=== PATIENT | female | born 1955 | race African-American/Black ===

== ENCOUNTER 2016-11-13 22:10 | Emergency (ER) | payer OTHER ==
[~2016-11-13] VITALS: Ht 167.6 cm; Wt 77.1 kg
[2016-11-13 22:16] VITALS: BP 106/59
--- NOTE | 2016-11-13 22:24 | ED UPPER/LOWER EXTREMITY COMPL ---
History of Present Illness General Chief Complaint: Fall Stated Complaint: "BIBA PER EMS SLIP AND FALL" Source: patient Exam Limitations: no limitations Vital Signs & Intake/Output Vital Signs & Intake/Output Vital Signs Date Time Temp Pulse Resp B/P Pulse O2 O2 Flow FiO2 Ox Delivery Rate 11/137 97 Room Air 11/14 2215 96.6 83 18 106/59 96 Room Air ED Intake and Output 11/14 0000 11/13 1200 Intake Total Output Total Balance Patient 170 lb Weight Allergies Coded Allergies: MDX - Aspirin (UNKNOWN 07/25/11) MDX - Chocolate (Chocolate) (UNKNOWN 07/25/11) MDX - Penicillin (Penicillin) (RASH 07/25/11) MDX - Penicillin V (From Penicillin V Potassium) (RASH 07/25/11) MDX - Strawberries (Strawberries) (UNKNOWN 07/25/11) Triage Note: PT BIBA FROM [facility] [employer] C/O FALL. PER EMS PT WAS SHOPPING AND FELL AND LANDED ON LEFT SIDE OF BODY, HIP AND L KNEE. PT DENIES LOC, NO BLOOD THINNERS. PT ON ARRIVAL HAD SPLINT ON LEFT LEG, PER EMS NO LEG DEFORMITY OR DISFIGUREMENT IN [facility]. PT ON STRETCHER IN [facility] AT BEDSIDE FOR EVAL, FAMILY AT BEDSIDE WELL Triage Nurses Notes Reviewed? yes Onset: Abrupt Duration: minute(s):, constant, continues in ED Timing: single episode today Severity: moderate, severe Pain/Injury Location: Right: Hip, Knee. Method of Injury: fall No Modifying Factors: none HPI: 61-year-old female comes into emergency room for further evaluation of left hip pain and left knee pain and left lower leg pain. Patient reports that she twisted her leg and fell on her left side at the store. Sharp pain. Denies any head trauma. Denies any injury anywhere else. Nothing seems to make the symptoms better. Patient came in by ambulance. Past History Travel History Traveled to [place] past 21 day No Medical History Any Pertinent Medical History? none Surgical History Surgical History: non-contributory Psychosocial History What is your primary language [place] Family History Hx Contributory? No Review of Systems Review of Systems Constitutional: Reports: no symptoms. EENTM: Reports: no symptoms. Respiratory: Reports: no symptoms. Cardiovascular: Reports: no symptoms. Gastrointestinal/Abdominal: Reports: no symptoms. Genitourinary: Reports: no symptoms. Musculoskeletal: Reports: see HPI. Skin: Reports: no symptoms. Neurological/Psychological: Reports: no symptoms. Hematologic/Endocrine: Reports: no symptoms. Immunological: Reports: no symptoms. All Other Systems: Reviewed and Negative Physical Exam Physical Exam General Appearance: well developed/nourished, mild distress Head: atraumatic Eyes: Bilateral: normal appearance. Ears, Nose, Throat: normal ENT inspection, hearing grossly normal Neck: normal inspection Cardiovascular/Respiratory: no respiratory distress Back: normal inspection Hip Left: normal range of motion, normal inspection Knee Left: normal inspection, soft tissue tenderness, limited range of motion Foot Left: normal inspection, normal range of motion Skin: intact, normal color, warm/dry Lymphatic: no anterior cervical otis Progress Differential Diagnosis: contusion, dislocation, fracture, gout, septic arthritis , sprain, tendon injury Plan of Care: Orders Procedure Date/time Status Durable Medical Equipment 11/13 2340 Active Diagnostic Imaging: Viewed by Me: Radiology Read. Discussed w/RAD: Radiology Read. Comments: IMPRESSION: No acute abnormality. Degenerative joint disease of the knee. IMPRESSION: Normal left tibia and fibula. IMPRESSION: Normal left hip. DICTATED BY: AROSE Departure Departure Disposition: HOME OR SELF CARE Condition: Stable Clinical Impression Primary Impression: Left knee sprain Referrals: HUSSEIN ESTRADA,ZEFERINO MARIN MD,CHARITY Vanegas (PCP/Family) Additional Instructions: Ice. Rest. Motrin for pain. Elevation. Follow-up with orthopedic doctor provided if not better in 3-5 days. If symptoms do not improve you'll require further evaluation with possible repeat x-rays as well as evaluation by rx specialist. Sprains can last anywhere from days to weeks. No high impact running or jumping if you have an ankle sprain or any type of lower extremity sprain. Return to normal activity only after symptoms have resolved. Departure Forms: Customer Survey General Discharge Information Procedures Splinting Location: LEFT KNEE Manual Alignment Performed: No Pre-Made Type: knee imobilizer Splint Applied By: splint applied by me Pre-Proc Neuro Vasc Exam: normal Post-Proc Neuro Vasc Exam: normal
--- NOTE | 2016-11-13 23:14 | RADIOLOGY REPORT ---
EXAMINATION: XR HIP, LEFT CLINICAL INFORMATION: Trauma. Fall. Pain. COMPARISON: None TECHNIQUE: Two views of the left hip. FINDINGS: Bones and soft tissues are normal. No fracture. Alignment is anatomic. Hip joint space is maintained. IMPRESSION: Normal left hip.
--- NOTE | 2016-11-13 23:20 | RADIOLOGY REPORT ---
EXAMINATION: XR KNEE, LEFT CLINICAL INFORMATION: Trauma. Fall. Pain. COMPARISON: None TECHNIQUE: Four views of the left knee. FINDINGS: No fracture. No dislocation. There is joint space narrowing of the medial femoral tibial joint with large marginal spur of the femur and smaller spur of the tibia. Minimal spur of the patella inferiorly at the patellofemoral joint. No bone erosion. No joint effusion. No soft tissue calcification. IMPRESSION: No acute abnormality. Degenerative joint disease of the knee.
--- NOTE | 2016-11-13 23:22 | RADIOLOGY REPORT ---
EXAMINATION: XR TIBIA AND FIBULA, LEFT CLINICAL INFORMATION: Trauma. Fall. COMPARISON: None TECHNIQUE: AP and lateral views of the left tibia and fibula were obtained. FINDINGS: The bones and soft tissues are normal. No fracture. No osseous lesions. IMPRESSION: Normal left tibia and fibula.
== END 2016-11-13 23:53 ==
LOC: ERH 22:10
DX: S83.92XA Sprain of unspecified site of left knee, initial encounter (principal); X58.XXXA Exposure to other specified factors, initial encounter; Y92.512 Supermarket, store or market as the place of occurrence of the external cause; Y93.9 Activity, unspecified
CPT/HCPCS: 73502-LT; 73562-LT; 73590-LT